=== PATIENT | female | born 2005 | race Caucasian/White ===

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

== ENCOUNTER 2023-02-12 09:06 | Emergency (ER) | payer MEDICAID, OTHER ==
[2023-02-12 09:21] VITALS: BP 119/84; PULSE 81
[2023-02-13 13:41] LABS: C.TRACHOMATIS BY TMA Negative (Negative); N.GONORRHOEAE BY TMA Negative (Negative)
== END 2023-02-12 10:25 | disposition home or self-care (01) ==
LOC: CC.ED 09:06
DX: Z11.3 Encounter for screening for infections with a predominantly sexual mode of transmission (principal); R30.0 Dysuria
CPT/HCPCS: 81001; 81025; 87491; 87591; 99283

== ENCOUNTER 2023-02-17 04:26 | Emergency (ER) | payer MEDICAID ==
[2023-02-17 04:35] VITALS: BP 110/61; PULSE 78
[2023-02-17] MEDS: Ondansetron 4 MG/2 ML SDV IVPUSH ONE (04:51)
[2023-02-17] MEDS: Sodium Chloride 0.9% 1,000 ML IV ONE (04:51)
[2023-02-17] MEDS: Ketorolac 30 MG/ML SDV IVPUSH ONE (05:01)
== END 2023-02-17 06:04 | disposition home or self-care (01) ==
LOC: CC.ED 04:26
DX: R10.32 Left lower quadrant pain (principal); R11.2 Nausea with vomiting, unspecified; E86.0 Dehydration
CPT/HCPCS: 36415; 80053; 81001; 85025; 87086; 96361; 96374; 96375; 99284; 99284-25; J1885; J2405; J7030